=== PATIENT | female | born 2000 | race Caucasian/White ===

== ENCOUNTER 2018-12-04 14:30 | Emergency (ER) | payer OTHER ==
[2018-12-04] MEDS ORDERED: Tetan/Diph/Pertus SYR(Tdap)* 0.5 ML SYR(BOOSTRIX) use SYR IM ONE (16:04)
--- NOTE | 2018-12-04 16:10 | ED ---
Laceration/Wound HPI - HPI Summary HPI Summary: Patient is a 18-year-old female presenting to the ED with right medial foot laceration which is approximately 3 cm in length. She states bleeding is well controlled on arrival. She was swimming in a pool when she scraped the bottom of the pool with her foot crating laceration. She denies any pain at this time. Denies any other concerns. Unknown last tetanus. - History of Current Complaint Stated Complaint: FOOT LACERATION Time Seen by Provider: 12/04/18 14:50 Hx Obtained From: Patient Mechanism of Injury: Sharp/Blunt Trauma Onset/Duration: Sudden Onset, Lasting Hours Alleviating: Compression Timing: Constant Onset Severity: Mild Current Severity: Mild Pain Intensity: 7 Pain Scale Used: 0-10 Numeric Associated Signs & Symptoms: Negative - Allergy/Home Medications Allergies/Adverse Reactions: Allergies Allergy/AdvReac Type Severity Reaction Status Date / Time No Known Allergies Allergy Verified 12/04/18 14:35 Home Medications: Home Medications Control 1 tab PO DAILY 12/04/18 [History Confirmed 12/04/18] PMH/Surg Hx/FS Hx/Imm Hx Previously Healthy: Yes - Immunization History Hx Pertussis Vaccination: No Immunizations Up to Date: Yes Infectious Disease History: No Infectious Disease History: Reports: Traveled Outside the [place] in Last 30 Days - Social History Occupation: Unemployed Lives: With Family Alcohol Use: None Hx Substance Use: No Substance Use Type: Reports: None Hx Tobacco Use: No Smoking Status (MU): Never Smoked Tobacco Review of Systems Constitutional: Negative Negative: Fever, Chills, Fatigue, Skin Diaphoresis Negative: Palpitations, Chest Pain Negative: Shortness Of Breath, Cough Negative: Arthralgia, Myalgia Positive: Other - laceration Neurological: Negative All Other Systems Reviewed And Are Negative: Yes Physical Exam Triage Information Reviewed: Yes Vital Signs On Initial Exam: Initial Vitals Temp Pulse Resp BP Pulse Ox 97.9 F 69 12 128/79 100 12/04/18 14:32 12/04/18 14:32 12/04/18 14:32 12/04/18 14:32 12/04/18 14:32 Vital Signs Reviewed: Yes Appearance: Positive: Well-Appearing, Well-Nourished Skin: Positive: Skin Color Reflects Adequate Perfusion Head/Face: Positive: Normal Head/Face Inspection Eyes: Positive: EOMI, MAR, Conjunctiva Clear Neck: Positive: Supple Respiratory/Lung Sounds: Positive: Clear to Auscultation Cardiovascular: Positive: Pulses are Symmetrical in both Upper and Lower Extremities Musculoskeletal: Positive: Strength/ROM Intact Neurological: Positive: Speech Normal Psychiatric: Positive: Affect/Mood Appropriate AVPU Assessment: Alert Diagnostics - Vital Signs Vital Signs Temp Pulse Resp BP Pulse Ox 12/04/18 14:32 97.9 F 69 12 128/79 100 - Laboratory Lab Statement: Any lab studies that have been ordered have been reviewed, and results considered in the medical decision making process. Laceration Repair Course/Dx - Course Course Of Treatment: During his course of treatment, the patient is evaluated for laceration to the medial side of the right foot just proximal to the right toe. This measures a proximal 3 cm in length. Bleeding is well controlled on arrival. On physical examination, the laceration is already closed, edges appropriated well and currently not bleeding. Adhesive applied. Steri-Strips applied. Gauze wrap. Tetanus updated. Patient is okay for discharge at this time. - Clinical Impression Provider Diagnoses: Laceration Discharge - Sign-Out/Discharge Documenting (check all that apply): Patient Departure Patient Received Moderate/Deep Sedation with Procedure: No - Discharge Plan Condition: Stable Disposition: HOME Patient Education Materials: Skin Adhesive Care (ED), Steristrips (ED) Referrals: No Primary Care Phys,NOPCP [Primary Care Provider] - Additional Instructions: Please keep will the bandage applied x 24 hours Change this out after 24 hours Keep out of water x 24 hours at least Bandaid may be applied following - Billing Disposition and Condition Condition: STABLE Disposition: Home
[2018-12-04 16:27] VITALS: BP 125/83
== END 2018-12-04 16:25 | disposition home or self-care (01) ==
LOC: ED 14:30
DX: S91.311A Laceration without foreign body, right foot, initial encounter (principal); Z23 Encounter for immunization; W22.09XA Striking against other stationary object, initial encounter; Y93.11 Activity, swimming; Y92.34 Swimming pool (public) as the place of occurrence of the external cause
CPT/HCPCS: 90471; 90715; 99281